=== PATIENT | male | born 1975 | race Caucasian/White ===

== ENCOUNTER 2022-12-01 21:09 | Emergency (ER) | payer OTHER ==
[~2022-12-01] VITALS: Ht 182.9 cm; Wt 95.1 kg
[2022-12-02] MEDS ORDERED: AMOX-277 PO (01:12)
[2022-12-02 01:58] VITALS: BP 113/78
== END 2022-12-02 04:53 | disposition home or self-care (01) ==
LOC: ER 21:09
DX: S61.451A Open bite of right hand, initial encounter (principal); Z88.0 Allergy status to penicillin; Z88.1 Allergy status to other antibiotic agents; Z88.6 Allergy status to analgesic agent; W54.0XXA Bitten by dog, initial encounter; Y93.89 Activity, other specified; Y92.89 Other specified places as the place of occurrence of the external cause; Y99.8 Other external cause status

== ENCOUNTER 2023-12-24 16:25 | Emergency (ER) | payer BC, OTHER ==
[~2023-12-24] VITALS: Ht 180.3 cm; Wt 92.0 kg
[~2023-12-24 16:25] MED LIST: AMOX875T4 PO
[2023-12-24 17:35] VITALS: BP 126/76; PULSE 96; RESP 16; O2SAT 97
[2023-12-24 18:07] VITALS: TEMP 100.5
[2023-12-24] MEDS: cefTRIAXone SOD 1,000 MG VL IM ONE (18:07)
[2023-12-24] MEDS: ACETAMINOPHEN 500 MG TAB PO ONE (18:07)
[2023-12-24] MEDS ORDERED: LEVO500T91 PO (18:22)
[2023-12-24] MEDS ORDERED: IBUP-1456 PO (18:22)
== END 2023-12-24 18:26 | disposition home or self-care (01) ==
LOC: ER 16:25
DX: H66.93 Otitis media, unspecified, bilateral (principal); G43.909 Migraine, unspecified, not intractable, without status migrainosus; R07.89 Other chest pain; Z79.1 Long term (current) use of non-steroidal anti-inflammatories (NSAID); Z79.2 Long term (current) use of antibiotics; Z88.0 Allergy status to penicillin; Z88.1 Allergy status to other antibiotic agents; Z88.8 Allergy status to other drugs, medicaments and biological substances
CPT/HCPCS: 70450; 71045; 96372; 99285; J0696

== ENCOUNTER 2024-05-21 21:05 | Emergency (ER) | payer BC, OTHER ==
[~2024-05-21] VITALS: Ht 180.3 cm; Wt 94.5 kg
[~2024-05-21 21:05] MED LIST changes: +IBUP-1456 PO; +LEVO500T91 PO
[2024-05-21 22:10] LABS: Urine Bacteria None Seen /hpf (None Seen)
[2024-05-21 22:17] VITALS: BP 135/76; TEMP 98.7
[2024-05-21 22:20] VITALS: PULSE 90; RESP 18; O2SAT 98
[2024-05-21 22:36] LABS: Amphetamine Screen, Urine Neg (NEGATIVE); Barbiturate Scree,Urine Neg (NEGATIVE); Benzodiazephine Screen, Urine Neg (NEGATIVE); Cannabinoid Screen, Urine Neg (NEGATIVE); Cocaine Screen, Urine Neg (NEGATIVE); Opiate Scree,Urine Neg (NEGATIVE); Phencyclidine Screen, Urine Neg (NEGATIVE)
[2024-05-21 22:58] LABS: Urine Blood 1+ /uL (Negative); Urine Clarity Clear (Clear); Urine Color Yellow (Yellow); Urine Mucus FEW (None Seen); Urine Protein, UAD 1+ (Negative); Urine Specific Gravity 1.034 (1.001-1.035); Urine Urobilinogen Normal (Negative); Urine WBC 1 /hpf (0 - 3); Urine pH 5.5 (5.0-9.0)
== END 2024-05-21 23:07 | disposition home or self-care (01) ==
LOC: ER 21:05
DX: Z13.89 Encounter for screening for other disorder (principal); Z04.1 Encounter for examination and observation following transport accident; Z88.0 Allergy status to penicillin; Z88.1 Allergy status to other antibiotic agents; Z88.8 Allergy status to other drugs, medicaments and biological substances; Z79.899 Other long term (current) drug therapy
CPT/HCPCS: 80307; 81001